=== PATIENT | male | born 2000 | race Caucasian/White ===

== ENCOUNTER 2020-12-27 00:10 | Inpatient (IN) | payer OTHER ==
[2020-12-27] VITALS (494 sets, daily range): BP systolic 112–143; BP diastolic 47–77; PULSE 64–98; TEMP 96.5–99; O2SAT 83–100
[~2020-12-27] VITALS: Ht 180.3 cm; Wt 96.0 kg
--- NOTE | 2020-12-27 00:38 | NUR ---
Pt intubated at 0038 with no complications. 7.5 ETT, 24@teeth. Pushed in to 25@ teeth after xray. VT-450, RATE-16, PEEP-8, 100%
[2020-12-27 01:04] LABS: HEMOGLOBIN 16.3 g/dl (13.5-18.0); MEAN CELL VOLUME 88 fl (80.0-100.0); MEAN CORPUSCULAR HEMOGLOBIN 29 pg (27.0-31.0); MEAN CORPUSCULAR HGB CONC 33 g/dl (33.0-37.0); MEAN PLATELET VOLUME 9.7 fl (7.4-10.4); PLATELET COUNT 385 K/mm3 (130-400); RED BLOOD COUNT 5.69 M/mm3 (4.20-5.60); REDCELL DISTRIBUTION WIDTH-CV 13.5 % (11.5-14.5)
[2020-12-27 01:10] LABS: ALCOHOL(ethanol),MEDICAL 243 mg/dL
[2020-12-27 01:12] LABS: ALANINE AMINOTRANSFERASE 22 U/L (4-49); ALBUMIN 5.2 gm/dL (3.5-5.0); ALKALINE PHOSPHATASE 76 U/L (50-136); ANION GAP 19 mmol/L (7-16); AST,SGOT 29 U/L (15-37); BILIRUBIN,TOTAL 0.8 mg/dL (0.0-1.0); BLOOD UREA NITROGEN 15 mg/dL (9-20); CALCIUM 9.4 mg/dL (8.4-10.2); CARBON DIOXIDE 19 mmol/L (22-30); CHLORIDE 102 mmol/L (98-107); CREATININE, serum 0.97 (0.66-1.25); GLUCOSE 116 mg/dL (74-106); POTASSIUM 3.3 mmol/L (3.4-5.0); SODIUM 141 mmol/L (137-145); TOTAL PROTEIN 8.2 gm/dL (6.4-8.2)
[2020-12-27 01:13] LABS: ACETAMINOPHEN < 10 ug/mL (10-30); SALICYLATE < 1.0 mg/dL
[2020-12-27 01:14] LABS: LIPASE 45 U/L (23-300)
[2020-12-27 01:24] LABS: TROPONIN-I < 0.012 ng/mL (0.000-0.035)
[2020-12-27 01:44] LABS: BAND 7 % (0-10); EOSINOPHIL 3 % (0-4); HYPOCHROMIA 1+; LYMPHOCYTE 49 % (20.0-51.0); METAMYELOCYTE 1 % (0-0); NEUTROPHILS 37 % (42.0-75.2); PLATELET ESTIMATE NORMAL (NORMAL)
[2020-12-27 01:53] LABS: PROTHROMBIN TIME 11.5 SECONDS (9.7-12.8)
[2020-12-27 01:55] LABS: PARTIAL THROMBOPLASTIN TIME 34.5 SECONDS (26.0-37.0); TRICYCLIC ANTIDEPRESS URINE NEGATIVE
[2020-12-27 01:55] LABS: ARTERIAL BLD GAS O2 SATURATION 99.3 % (92-100); ARTERIAL BLD GAS TCO2 CT 20.2; ARTERIAL BLOOD GAS PCO2 36.6 mmHg (35-45); ARTERIAL BLOOD GAS PO2 231.6 mmHg (80-100); ARTERIAL BLOOD GAS pH 7.33 (7.35-7.45)
--- NOTE | 2020-12-27 03:21 | NUR ---
Fentanyl continued from ED.
[2020-12-27 04:41] LABS: BASO % 0.1 % (0.0-2.0); EOS # 0.2 (0.0-0.7); EOS % 1.7 % (0-4.0); GRAN # 4.7 (1.4-6.5); GRAN % 50.6 % (42.2-75.2); HEMATOCRIT 46.7 % (42.0-52.0); HEMOGLOBIN 15.5 g/dl (13.5-18.0); LYMPH # 3.6 (1.2-3.4); LYMPH % 38.9 % (20.0-51.0); MEAN CELL VOLUME 87 fl (80.0-100.0); MEAN CORPUSCULAR HEMOGLOBIN 29 pg (27.0-31.0); MEAN CORPUSCULAR HGB CONC 33 g/dl (33.0-37.0); MEAN PLATELET VOLUME 9.5 fl (7.4-10.4); MONO # 0.8 (0.1-0.6); MONO % 8.3 % (1.7-9.3); PLATELET COUNT 313 K/mm3 (130-400); RED BLOOD COUNT 5.39 M/mm3 (4.20-5.60); REDCELL DISTRIBUTION WIDTH-CV 13.6 % (11.5-14.5)
[2020-12-27 04:52] LABS: ALBUMIN 4.5 gm/dL (3.5-5.0); BILIRUBIN,TOTAL 1.1 mg/dL (0.0-1.0); CALCIUM 8.9 mg/dL (8.4-10.2); CREATININE, serum 0.74 (0.66-1.25); MAGNESIUM 2.2 mg/dL (1.6-2.3); POTASSIUM 3.9 mmol/L (3.4-5.0); TOTAL PROTEIN 7.2 gm/dL (6.4-8.2)
--- NOTE | 2020-12-27 05:00 | NUR ---
No sedation vacation performed as pt arrived to unit at 0320.
[2020-12-27 06:11] LABS: ARTERIAL BLD GAS TCO2 CT 23.1; ARTERIAL BLOOD GAS BASE EXCESS -4.5 (-2-2); ARTERIAL BLOOD GAS HCO3 21.8 meq/L (22-26); ARTERIAL BLOOD GAS PCO2 44.2 mmHg (35-45); ARTERIAL BLOOD GAS pH 7.31 (7.35-7.45)
--- NOTE | 2020-12-27 10:27 | NUR ---
WEANING TRIAL DONE BY RT PER 'S REQUEST. SEDATION STOPPED. PT EXTUBATED AT 1027. PT AWAKE BUT SLEEPY. PT'S VSS. PT SATING WELL ON RA. WILL CONTINUE TO MONITOR.
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
--- NOTE | 2020-12-27 19:50 | NUR ---
Patient called nurses station to ask if visitors were allowed to come in and see him. Patient was told by [facility] that visitors were not allowed at this time d/t covid and the hospital policy. Patient became agitated and began to swear and yell that he wanted out of the hospital or he was going to leave. Nurse walked into patients room and asked patient if there was anything she could help with. Patient began to yell and cuss out nurse stating he didn't feel safe here, that he was fine, nothing was wrong with him and he was going to leave if we didn't discharge him. Nurse told patient that he would more than likely get to go home tomorrow but providers would like him to stay another 24 hours to monitor for and s/s of detox as well as the patient being extubated less than 12 hours ago. Patient was very adamant that he would not be staying and that he was fine and began to try to take out IVs. Nurse stated that if the patient wanted it was his right to leave against medical advice. Nurse stated hospitalist would have to come talk to patient about risks against leaving medical advice and that he would have to sign paperwork stating he was leaving AMA. Patient said he wanted to leave AMA. Nurse notified nurse charge rn who notified linen room houseperson of situation. LYN Wyatt came down to talk to patient at 1999 and explain reasoning for staying and any risks that may occur if patient left AMA. Patient called several friends during conversation with PA to get friends to pick him up. Patient stated he understood the risks for leaving against medical advice that the PA relayed to him. Patient signed AMA paperwork at 2012 with PA and nurse present.
--- NOTE | 2020-12-27 19:53 | NUR ---
Received report from FERNANDO Jackson. Patient laying in bed on cell phone facetiming. VSS. All medications verified and all questions answered. Will resume care at this time.
--- NOTE | 2020-12-27 20:30 | NUR ---
Patient signed AMA paperwork at 2012 and refused all medical care after signing AMA paperwork. No assessments or vitals completed d/t patient refusal.
--- NOTE | 2020-12-27 21:17 | NUR ---
Patient walked out of facility AMA with nurse escorting at 2114 Patient stated he had all belongings with him except for his shoes, which he stated were in his car in the parking lot and he would get them later.
== END 2020-12-27 21:16 | disposition left against medical advice (07) | DRG 894 ==
LOC: COL.ER 00:10 → ICU 02:23
PROVIDERS: Emergency Medicine; Student in an Organized Health Care Education/Training Program; ADMIT Student in an Organized Health Care Education/Training Program
PROC: 5A1935Z Respiratory Ventilation, Less than 24 Consecutive Hours (ICD-10-PCS; principal; 2020-12-27)
PROC: 0BH17EZ Insertion of Endotracheal Airway into Trachea, Via Natural or Artificial Opening (ICD-10-PCS; 2020-12-27)
DX: F10.229 Alcohol dependence with intoxication, unspecified (principal); J96.01 Acute respiratory failure with hypoxia; E87.2 Acidosis; G93.40 Encephalopathy, unspecified; D72.829 Elevated white blood cell count, unspecified; E87.6 Hypokalemia; J38.5 Laryngeal spasm; F12.90 Cannabis use, unspecified, uncomplicated; Z20.822 Contact with and (suspected) exposure to COVID-19; Y90.8 Blood alcohol level of 240 mg/100 ml or more
CPT/HCPCS: 99223-AI; C9113; J0330; J1650; J2250; J2704; J3010; J3411; J3480; J7030